=== PATIENT | female | born 2000 | race Caucasian/White ===

== ENCOUNTER 2020-10-31 11:20 | Emergency (ER) | payer OTHER ==
[~2020-10-31 11:20] MED LIST: FLEXERIL 10 MG10 MG PO; NAPROSYN500 MG PO
[2020-10-31 13:05] LABS: HEMOGLOBIN 14.1 gm/dl (12.3-15.3); RED BLOOD COUNT 5.04 M/UL (4.00-5.10); WHITE BLOOD COUNT 7.2 K/UL (4.5-11.0)
[2020-10-31 13:39] LABS: BUN/CREATININE RATIO 13 (0-10)
[2020-10-31] MEDS ORDERED: MACROBID 100 M100 MG PO (16:02)
== END 2020-10-31 16:33 | disposition home or self-care (01) ==
LOC: ER1 11:20
PROVIDERS: Physician Assistant
DX: O20.0 Threatened abortion (principal); O23.41 Unspecified infection of urinary tract in pregnancy, first trimester; O99.891 Other specified diseases and conditions complicating pregnancy; R31.9 Hematuria, unspecified; Z3A.08 8 weeks gestation of pregnancy; Z88.2 Allergy status to sulfonamides; Z90.89 Acquired absence of other organs
CPT/HCPCS: 80053; 81001; 84702; 84703; 85025; 86900; 86901; 99284

== ENCOUNTER 2021-06-08 05:40 | Inpatient (IN) | payer BC, OTHER ==
[~2021-06-08] VITALS: Ht 167.6 cm; Wt 111.6 kg
[~2021-06-08 05:40] MED LIST changes: +MACROBID 100 M100 MG PO
[2021-06-08 07:37] LABS: HEMOGLOBIN 11.9 gm/dl (12.3-15.3); RED BLOOD COUNT 4.29 M/UL (4.00-5.10); WHITE BLOOD COUNT 14.7 K/UL (4.5-11.0)
[2021-06-08] MEDS ORDERED: COLACE 100MG C100 MG PO (15:08)
[2021-06-08] MEDS ORDERED: IBUPROFEN600 MG PO (15:08)
[2021-06-08] MEDS ORDERED: FERROUS SULFAT325 MG PO (15:08)
[2021-06-09 06:17] LABS: HEMOGLOBIN 10.9 gm/dl (12.3-15.3)
== END 2021-06-10 12:10 | disposition home or self-care (01) | DRG 807 ==
LOC: OB 05:40
PROVIDERS: ADMIT Obstetrics & Gynecology
PROC: 10907ZC Drainage of Amniotic Fluid, Therapeutic from Products of Conception, Via Natural or Artificial Opening (ICD-10-PCS; principal; 2021-06-08)
PROC: 10E0XZZ Delivery of Products of Conception, External Approach (ICD-10-PCS; 2021-06-08)
PROC: 3E033VJ Introduction of Other Hormone into Peripheral Vein, Percutaneous Approach (ICD-10-PCS; 2021-06-08)
PROC: 0UQMXZZ Repair Vulva, External Approach (ICD-10-PCS; 2021-06-08)
PROC: 3E0DXGC Introduction of Other Therapeutic Substance into Mouth and Pharynx, External Approach (ICD-10-PCS; 2021-06-08)
DX: O99.52 Diseases of the respiratory system complicating childbirth (principal); Z37.0 Single live birth; Z20.822 Contact with and (suspected) exposure to COVID-19; J45.909 Unspecified asthma, uncomplicated; O26.853 Spotting complicating pregnancy, third trimester; Z90.89 Acquired absence of other organs; Z3A.39 39 weeks gestation of pregnancy
CPT/HCPCS: 36415; 81001; 85014; 85018; 85025; J2590; J7120; U0002